=== PATIENT | female | born 1995 | race Caucasian/White ===

== ENCOUNTER 2024-06-30 15:59 | Emergency (ER) | payer OTHER, MEDICAID ==
[~2024-06-30] VITALS: Ht 167.6 cm; Wt 85.0 kg
[2024-06-30] MEDS: ACETAMINOPHEN 325 MG TAB PO ONE (16:30)
[2024-06-30] MEDS: ONDANSETRON ODT 4 MG TAB PO ONE (16:30)
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
[2024-06-30 17:46] VITALS: BP 118/79; PULSE 90; RESP 18; TEMP 98.2; O2SAT 95
== END 2024-06-30 18:17 | disposition home or self-care (01) ==
LOC: ER 15:59 → EDBD 15:59 → ER 18:17
DX: S16.1XXA Strain of muscle, fascia and tendon at neck level, initial encounter (principal); Z90.49 Acquired absence of other specified parts of digestive tract; V43.52XA Car driver injured in collision with other type car in traffic accident, initial encounter; Y93.I9 Activity, other involving external motion; Y92.488 Other paved roadways as the place of occurrence of the external cause; Y99.8 Other external cause status
CPT/HCPCS: 72040; 99283; Q0162